=== PATIENT | male | born 1985 ===

== ENCOUNTER 2017-10-18 12:42 | Emergency (ER) | payer OTHER ==
[2017-10-18 12:57] VITALS: BP 123/78; PULSE 82; RESP 18; TEMP 98.1; O2SAT 100
--- NOTE | 2017-10-18 13:35 | C.PDOC ---
History Of Present Illness 32 y/o male presents to the ED complaining of bilateral lower back pain for 1 week. No injury or blunt trauma. 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 He tried applying heat therapy, which worsened pain. Took motrin 200 mg x3 yesterday with minor improvement. Denies any fever, weakness, numbness, dysuria, or incontinence of bowel/bladder. Time Seen by Provider: 10/18/17 13:30 Chief Complaint (Nursing): Back Pain History Per: Patient History/Exam Limitations: no limitations Onset/Duration Of Symptoms: Days Current Symptoms Are (Timing): Still Present Past Medical History Reviewed: Historical Data, Nursing Documentation, Vital Signs Vital Signs: Last Vital Signs Temp 98.1 F 10/18/17 12:55 Pulse 82 10/18/17 12:55 Resp 18 10/18/17 12:55 BP 123/78 10/18/17 12:55 Pulse Ox 100 10/18/17 13:38 - Medical History PMH: No Chronic Diseases Surgical History: No Surg Hx Family History: States: No Known Family Hx - Social History Hx Alcohol Use: Yes Hx Substance Use: No Review Of Systems Except As Marked, All Systems Reviewed And Found Negative. Constitutional: Negative for: Fever Genitourinary: Negative for: Dysuria, Frequency, Incontinence, Hematuria Musculoskeletal: Positive for: Back Pain Neurological: Negative for: Weakness, Numbness Physical Exam - Physical Exam Appears: Non-toxic, No Acute Distress Skin: Normal Color, Warm, Dry Head: Atraumatic, Normacephalic Eye(s): bilateral: Normal Inspection, PERRL, EOMI Oral Mucosa: Moist Chest: Symmetrical Respiratory: No Other (respiratory distress) Back: No Vertebral Tenderness, Other (bilateral spinal jazzmine tenderness and inflammation) Extremity: Bilateral: Atraumatic, Normal Color And Temperature, Normal ROM Neurological/Psych: Oriented x3, Normal Speech Gait: Steady ED Course And Treatment O2 Sat by Pulse Oximetry: 100 (RA) Pulse Ox Interpretation: Normal Medical Decision Making Medical Decision Making: Impression: muscle strain - working in a company making large heavy molds, much heavy lifting. no trauma. Initial Plan: * Toradol 60 mg IM * Tramadol 50 mg PO On reeval, pt reports improvement in pain. outpatient CT LS spine pending, but no neurological symptoms - seems purely muscular. Pt stable for d/c home. Disposition Doctor Will See Patient In The: Office Counseled Patient/Family Regarding: Studies Performed, Diagnosis - Disposition Referrals: Jefferson Short MD [Staff Provider] - Disposition: HOME/ ROUTINE Disposition Time: 13:37 Condition: GOOD Additional Instructions: [place] 1/2 hora por hora, nada caliente no jeff caliente Ibuprofeno 600 mg cada 6 horas [place] necessario Tramadol 50 mg (narcotico) 1 tableta cada 6 horas [place] necessario para will mas severos Grahn 3 morton Prescriptions: traMADol [Ultram] 50 mg PO Q6H PRN #20 tab PRN Reason: pain Instructions: Lumbar Muscle Strain Forms: [employer] (Macedonian), Work Excuse Print Language: [place] R[place] - Clinical Impression Clinical Impression: Low back strain - Scribe Statement The provider has reviewed the documentation as recorded by the Scribe (Andreia Rao) Provider Attestation: All medical record entries made by the Scribe were at my direction and personally dictated by me. I have reviewed the chart and agree that the record accurately reflects my personal performance of the history, physical exam, medical decision making, and the department course for this patient. I have also personally directed, reviewed, and agree with the discharge instructions and disposition.
== END 2017-10-18 13:57 | disposition home or self-care (01) ==
LOC: C.ER 12:42
DX: S39.012A Strain of muscle, fascia and tendon of lower back, initial encounter (principal); X50.0XXA Overexertion from strenuous movement or load, initial encounter; Y92.89 Other specified places as the place of occurrence of the external cause; Y99.8 Other external cause status
CPT/HCPCS: 96372; 99283; J1885